=== PATIENT | male | born 1960 | race Caucasian/White ===

== ENCOUNTER 2017-07-06 18:35 | Emergency (ER) | payer OTHER ==
[~2017-07-06] VITALS: Ht 182.9 cm; Wt 107.0 kg
--- NOTE | 2017-07-06 20:36 | NUR ---
Patient discharged to home in stable conditon. Written and verbal after care instructions given. Patient verbalizes understanding of instructions.
== END 2017-07-06 20:37 | disposition home or self-care (01) ==
LOC: ER 18:38
DX: S16.1XXA Strain of muscle, fascia and tendon at neck level, initial encounter (principal); V43.52XA Car driver injured in collision with other type car in traffic accident, initial encounter; Y93.89 Activity, other specified; Y92.410 Unspecified street and highway as the place of occurrence of the external cause; Y99.8 Other external cause status
CPT/HCPCS: A4663